=== PATIENT | male | born 1965 | race Caucasian/White ===

== ENCOUNTER 2020-10-13 07:26 | Outpatient (CLI) | payer OTHER, SELFPAY ==
--- NOTE | 2020-10-13 07:15 | XR_ITS ---
WS: [id number] KUB, 10/13/2020 Clinical Data: Stones Comparison: KUB 10/13/2019. Findings: No abnormal intraabdominal masses or calcifications are seen. There is no dilatated small bowel or ev idence of obstruction. There is a large amount of fecal material throughout colon and especially in the rectum. XR/XR KUB [id number] Impression: Large amount of fecal material throughout the colon.
== END 2020-10-13 07:27 | disposition home or self-care (01) ==
PROVIDERS: Family Provider Family Medicine; PCP Family Medicine; Visit Provider Urology
DX: N21.0 Calculus in bladder (principal)
CPT/HCPCS: 74018; 81003

== ENCOUNTER 2021-05-02 11:39 | Outpatient (CLI) | payer OTHER, SELFPAY ==
--- NOTE | 2021-05-02 11:48 | XRR_ITS ---
PROCEDURE INFORMATION: Exam: XR Chest Exam date and time: 05/02/2021 11:48 AM Age: 56 years old Clinical indication: Cough TECHNIQUE: Imaging protocol: XR of the chest. Views: 2 views. COMPARISON: CR XR KUB [id number] 10/13/2020 7:39 AM FINDINGS: Lungs: Unremarkable. No consolidation. Pleural spaces: Unremarkable. No pleural effusion. No pneumothorax. Heart/Mediastinum: Unremarkable. No cardiomegaly. Bones/joints: Unremarkable. XR/XR chest 2V* [id number] IMPRESSION: No acute findings.
== END 2021-05-02 11:40 | disposition home or self-care (01) ==
PROVIDERS: PCP Family Medicine; Visit Provider Family Medicine
DX: R05 Cough (principal)
CPT/HCPCS: 71046

== ENCOUNTER → 2021-05-09 11:06 | Outpatient (BNVA) | payer OTHER, SELFPAY | PROVIDERS: PCP Family Medicine; Visit Provider Family Medicine | DX: Z01.818 Encounter for other preprocedural examination (principal) | CPT/HCPCS: 87635 ==

== ENCOUNTER 2021-05-12 08:48 | Outpatient (CLI) | payer OTHER, SELFPAY ==
--- NOTE | 2021-05-12 14:04 | PFTS_ITS ---
Date of Study:05/12/21 Date of Dictation: MECHANICS: Forced vital capacity (FVC) is normal. Forced expiratory volume in one second (FEV1) is normal. FEV1/FVC is normal. FLOW VOLUME LOOP: Normal. LUNG VOLUMES: Total lung capacity (TLC) is normal. Residual volume (RV) is normal. DIFFUSING CAPACITY FOR CARBON MONOXIDE: Normal. INTERPRETATION: The pulmonary function tests are normal. MTDD
== END 2021-05-12 08:49 | disposition home or self-care (01) ==
PROVIDERS: PCP Family Medicine; Visit Provider Family Medicine
DX: R05 Cough (principal)
CPT/HCPCS: 94010; 94726; 94729

== ENCOUNTER → 2022-09-19 15:45 | Outpatient (BNVA) | payer OTHER, SELFPAY | PROVIDERS: PCP Family Medicine; Visit Provider Clinical Nurse Specialist Adult Health | DX: R19.7 Diarrhea, unspecified (principal); R17 Unspecified jaundice | CPT/HCPCS: 80053; 85025; 86705; 86706; 86709; 86803; 87340 ==

== ENCOUNTER 2022-09-20 16:10 | Emergency (ER) | payer OTHER, SELFPAY ==
[2022-09-20] VITALS (15 sets, daily range): BP systolic 101–159; BP diastolic 59–105; PULSE 73–97; RESP 14–22; TEMP 36.1; O2SAT 95–98; BMI 26.0
--- NOTE | 2022-09-20 16:22 | ECG_ITS ---
[facility] Test Date: 2022-09-20 Pat Name: Landen Elizabeth Department: Room: Gender: Male Wood [employer] Artist: : 1965 Requested By: Nakul Dumas Order Number: [id number] Enrique MD: Ann Marie De Leon M.D. Measurements Intervals [place] Rate: 92 P: 57 NV: 161 QRS: 45 QRSD: 89 T: 22 QT: 321 QTc: 399 Interpretive Statements SINUS RHYTHM POSSIBLE LEFT ATRIAL ENLARGEMENT [-0.1mV P-WAVE IN V1/V2] NONSPECIFIC T-WAVE ABNORMALITY No previous ECG available for comparison Electronically Signed On 09-21-2022 5:28:24 PROCUREMENT CONSULTANT by Ann Marie De Leon M.D. [id number]
--- NOTE | 2022-09-20 16:23 | XRR_ITS ---
PROCEDURE INFORMATION: Exam: XR Chest Exam date and time: 09/20/2022 5:43 PM Age: 57 years old Clinical indication: Cough and dyspnea; Patient HX: Liver failure; Additional info: Dyspnea/cough TECHNIQUE: Imaging protocol: Radiologic exam of the chest. Views: 1 view. COMPARISON: CR XR chest 2V* [id number] 05/02/2021 11:56 AM FINDINGS: Lungs: Unremarkable. No consolidation. Pleural spaces: Unremarkable. No pleural effusion. No pneumothorax. Heart/Mediastinum: Unremarkable. No cardiomegaly. Bones/joints: Unremarkable. XR/XR chest 1V portable [id number] IMPRESSION: No acute findings.
[2022-09-20 17:02] LABS: Basophils # 0.1 10^3/uL (0.0-0.1); Basophils % 0.6 %; Eosinophils # 0.1 10^3/uL (0.0-0.8); Eosinophils % 0.6 %; Hematocrit 44.6 % (42.0-52.0); Hemoglobin 15.2 g/dL (11.7-16.6); Lymphocytes # 1.6 10^3/uL (0.8-4.8); Lymphocytes % 16.7 %; Mean Corpuscular HGB Conc 34.1 g/dL (30.0-36.0); Mean Corpuscular Hemoglobin 30.9 pg (28.0-34.0); Mean Corpuscular Volume 90.7 fl (80-94); Mean Platelet Volume 10.2 fL (7.4-10.4); Monocytes # 0.9 10^3/uL (0.2-0.9); Monocytes % 9.1 %; Neutrophils # 6.97 10^3/uL (1.8-7.7); Neutrophils % 72.6 %; Nucleated Red Blood Cells % 0 %; Platelet Count 324 10^3/cmm (130-400); Red Blood Count 4.92 10^6/uL (4.1-5.3); Red Cell Distribution Width 13.1 % (12.1-15.1); White Blood Count 9.6 10^3/uL (4.0-10.0)
--- NOTE | 2022-09-20 17:03 | PC.NURSE ---
PT PLACED ON CONTINUOUS NIBP, SPO2, AND CM
--- NOTE | 2022-09-20 17:05 | ED_ITS ---
Documented by User: Francisco Javier Lincoln DO 09/28/22 07:01 HPI - Recheck/Abnormal Lab/Rx General: Chief Complaint: Recheck/Abnormal Lab/Rx Stated Complaint: abnormal labs, dr sent for liver failure Time Seen by Provider: 09/20/22 16:23 Source: patient Mode of arrival: ambulatory History of Present Illness: 57-year-old male presents to the emergency room with complaints of abnormal labs. He seen his primary care doctor yesterday they recorded a potassium of 8.5 however interestingly he had a normal BUN and creatinine. He has no history of any kidney disease but he does appear significantly jaundiced and reports darkened urine. On the visual parents he does have scleral icterus. He also has been very tired he denies any history of heavy drinking denies any known history of hepatitis or tick borne illnesses. Initial visit (ago): day(s) (1) Symptoms since prior visit: no new symptoms Context: called for abnormal lab result Associated symptoms: malaise and nausea Review of Systems Const: Reports: fatigue and malaise; Denies: fever(s), chills, body aches or change in appetite ENMT: Denies: throat pain, ear or mastoid pain, nasal discharge or nasal congestion Card: Denies: chest pain, edema, dyspnea on exertion or orthopnea Resp: Denies: dyspnea, productive cough or non-productive cough GI: Denies: abdominal pain, nausea, vomiting, hematemesis, coffee ground emesis, diarrhea, constipation, bloating, hematochezia or melena : Denies: flank pain, dysuria, urinary frequency or urinary urgency Skin/Breast: Denies: rash or pruritus PFS ED PFSH: Medical History (Updated 09/26/22 @ 11:01 by Arpit Proctor NP) Bile duct obstruction Bladder stone REQUIRING CYSTOLITHALOPAXY SEPT. 2018 Erectile dysfunction Gross hematuria History of urethral narrowing Lower urinary tract symptoms (LUTS) Pancreatic mass Prostate cancer screening Urolithiasis Surgical History H/O dilation of urethra H/O inguinal hernia repair History of back surgery S/P tonsillectomy Family History Family/Other CAD (coronary artery disease) Hyperlipidemia Hypertension Social History Smoking and tobacco status: never smoked Alcohol intake: never Marital status: Physical Exam Const: GENERAL APPEARANCE: cooperative and comfortable ORIENTATION/CONSCIOUSNESS: Yes awake, Yes oriented to person, Yes oriented to place and Yes oriented to time HENMT: COMMON NORMALS: normocephalic and atraumatic HEAD & SCALP: normocephalic and atraumatic Eye: SCLERA: scleral abnormal (Icteric) Neck/C-Spine: COMMON NORMALS: no lymphadenopathy Resp: COMMON NORMALS: normal respiratory effort, No retractions, No use of accessory muscles and clear to auscultation bilaterally AUSCULTATION: clear to auscultation bilaterally Cardio: COMMON NORMALS: regular rate, regular rhythm and No murmurs present (Cardio) RATE: regular rate RHYTHM: regular rhythm GI: COMMON NORMALS: Soft to palpation and No hepatosplenomegaly present AUSCULTATION: Yes normoactive bowel sounds PALPATION: Yes Soft to palpation, No Tenderness to palpation present (GI), No Guarding due to palpation present (GI) and Yes No hepatosplenomegaly present Extremity: COMMON NORMALS: normal to inspection, capillary refill normal, no clubbing, cyanosis or edema, no calf tenderness and no pedal edema Neuro: SENSORIUM/ORIENTATION: Yes oriented to person, Yes oriented to place and Yes oriented to time Skin: COMMON NORMALS: no rashes or lesions noted GENERAL SKIN EXAM: no rashes or lesions noted Course Vital Signs: Vital signs: Vital Signs Temperature 97.0 F L 09/20/22 16:53 Pulse Rate 78 09/20/22 23:30 Respiratory Rate 20 H 09/20/22 23:30 Blood Pressure 101/59 09/20/22 23:30 Pulse Oximetry 96 09/20/22 23:30 Oxygen Delivery Me thod 09/20/22 22:58 MDM - Recheck/Abnormal Lab/Rx Medical Decision Making Care signed out to Dr. De Jesus at change of shift. See final notes for diagnosis and disposition. Patient presents here with jaundice CT shows a pancreatic mass concerning for pancreatic malignancy is likely causing bile duct obstruction with did speak to hospitalist at [facility] will transfer there for higher level of care for GI Lab Data 09/20/22 16:53 09/20/22 16:53 Radiology Impressions Chest X-Ray 09/20/22 16:23 IMPRESSION: No acute findings. Gallbladder Ultrasound 09/20/22 17:50 IMPRESSION: 1. Possible 3.6 cm hypoechoic mass in the pancreatic head. Follow-up with CT pancreas protocol recommended. 2. No gallbladder disease. 3. Hyperechoic liver, consistent with steatosis/steatohepatitis. Abdomen/Pelvis CT 09/20/22 19:34 IMPRESSION: 1. 4.2 cm pancreatic head mass causing obstruction and dilatation of the main pancreatic duct and mild dilatation of the bile ducts. This is most likely primary pancreatic malignancy. Follow-up with ERCP and transduodenal ultrasound should be considered. COMMENTS: Consistent with the [place] [employer]'s Incidental Findings Committee white paper (J Am Subhash Radiol 2018): Any incidental renal lesion less than 1 cm or classified as too small to characterize, or any incidental cystic renal lesion characterized as simple-appearing, is likely benign. No follow-up imaging is recommended for these lesions per consensus recommendations based on imaging criteria. Laboratory Results WBC 9.6 10^3/uL (4.0-10.0) 09/20/22 16:53 RBC 4.92 10^6/uL (4.1-5.3) 09/20/22 16:53 Hgb 15.2 g/dL (11.7-16.6) 09/20/22 16:53 Hct 44.6 % (42.0-52.0) 09/20/22 16:53 MCV 90.7 fl (80-94) 09/20/22 16:53 MCH 30.9 pg (28.0-34.0) 09/20/22 16:53 MCHC 34.1 g/dL (30.0-36.0) 09/20/22 16:53 RDW 13.1 % (12.1-15.1) 09/20/22 16:53 Plt Count 324 10^3/cmm (130-400) 09/20/22 16:53 MPV 10.2 fL (7.4-10.4) 09/20/22 16:53 Neut % (Auto) 72.6 % 09/20/22 16:53 Lymph % (Auto) 16.7 % 09/20/22 16:53 [place] % (Auto) 9.1 % 09/20/22 16:53 Eos % (Auto) 0.6 % 09/20/22 16:53 Baso % (Auto) 0.6 % 09/20/22 16:53 Neut # (Auto) 6.97 10^3/uL (1.8-7.7) 09/20/22 16:53 Lymph # (Auto) 1.6 10^3/uL (0.8-4.8) 09/20/22 16:53 [place] # (Auto) 0.9 10^3/uL (0.2-0.9) 09/20/22 16:53 Eos # (Auto) 0.1 10^3/uL (0.0-0.8) 09/20/22 16:53 Baso # (Auto) 0.1 10^3/uL (0.0-0.1) 09/20/22 16:53 Nucleated RBC % (auto) 0 % 09/20/22 16:53 Nucleated RBCs # 0.0 /100WBC 09/20/22 16:53 PT 12.80 SECONDS (12.1-14.9) 09/20/22 16:53 INR 0.93 (0.8-1.2) 09/20/22 16:53 APTT 26.4 SECONDS (23.9-36.7) 09/20/22 16:53 Sodium 135 mmol/L (136-145) L 09/20/22 16:53 Potassium 4.3 mmol/L (3.5-5.1) 09/20/22 16:53 Chloride 102 mmol/L (98-107) 09/20/22 16:53 Carbon Dioxide 19 mmol/L (22-29) L 09/20/22 16:53 Anion Gap 18.3 (5-19) 09/20/22 16:53 BUN 18 mg/dL (6-20) 09/20/22 16:53 Creatinine 1.0 mg/dL (0.7-1.2) 09/20/22 16:53 GFR Calculation 77.6 mL/min (90-130) L 09/20/22 16:53 Glucose 116 mg/dL (65-115) H 09/20/22 16:53 Calculated Osmolality 283 mOsm/kg (285-295) L 09/20/22 16:53 Calcium 10.0 mg/dL (8.5-10.5) 09/20/22 16:53 Magnesium 2.0 mg/dL (1.7-2.3) 09/20/22 16:53 Total Bilirubin 7.5 mg/dL (0.15-1.2) H* 09/20/22 16:53 Direct Bilirubin 5.50 mg/dL (0.00-0.30) H 09/20/22 16:53 AST 141 U/L (0-40) H 09/20/22 16:53 ALT 413 U/L (0-41) H 09/20/22 16:53 Alkaline Phosphatase 183 U/L (40-130) H 09/20/22 16:53 Ammonia 47 umol/L (16-60) 09/20/22 18:57 Creatine Kinase 187 U/L (39-308) 09/20/22 16:53 Total Protein 7.2 g/dL (6.6-8.7) 09/20/22 16:53 Albumin 4.3 g/dL (3.5-5.2) 09/20/22 16:53 Globulin 2.9 g/dL (1.3-4.6) 09/20/22 16:53 Lipase 41 U/L (13-60) 09/20/22 16:53 Urine Color Yellow (Yellow) 09/20/22 19:56 Urine Appearance Clear (CLEAR) 09/20/22 19:56 Urine pH 5 (5-7) 09/20/22 19:56 Ur Specific [place] 1.010 (1.005-1.030) 09/20/22 19:56 Urine Protein Neg (Negative) 09/20/22 19:56 Urine Glucose (UA) Norm (Normal) 09/20/22 19:56 Urine Ketones Negative (Negative) 09/20/22 19:56 Urine Blood Neg (Negative) 09/20/22 19:56 Urine Nitrate Negative (Negative) 09/20/22 19:56 Urine Bilirubin Neg (Negative) 09/20/22 19:56 Urine Urobilinogen Norm mg/dL (Negative) 09/20/22 19:56 Ur Leukocyte Esterase Negative (Negative) 09/20/22 19:56 Lyme Ab (Western Blot) <0.90 index 09/20/22 18:57 E. chaffeensis IgG Ab <1:64 09/20/22 18:57 E. chaffeensis IgM Ab <1:20 09/20/22 18:57 E. chaffeensis Interp See note 09/20/22 18:57 E. chaffeensis Comment Not Reportable 09/20/22 18:57 Hepatitis A IgM Ab Cancelled 09/20/22 17:50 Hep Bs Antigen Cancelled 09/20/22 17:50 Hep Bs Antibody 3.5 (11.5-1000) L 09/20/22 16:53 Hep B Core Total Ab Non-reactive (Nonreactive) 09/20/22 16:53 Hep B Core IgM Ab Cancelled 09/20/22 17:50 Hepatitis C Antibody Cancelled 09/20/22 17:50 Rickettsia IgG Ab Not detected 09/20/22 18:57 Rickettsia IgM Ab Not detected 09/20/22 18:57 Discharge Plan Discharge Patient Disposition: Xfer Short-Term Hosp Clinical Impression: Jaundice, Pancreatic mass, Bile duct obstruction Condition: Stable Referrals: Pablito Diop, [Primary Care Provider] - Coding Level of Care Code ED Instrumentation And Controls Technician for Chg Fwd Exam Comprehensive Documented by User: Antonio De Jesus MD 09/20/22 22:03 HPI - Recheck/Abnormal Lab/Rx General: Chief Complaint: Recheck/Abnormal Lab/Rx Stated Complaint: abnormal labs, dr sent for liver failure Time Seen by Provider: 09/20/22 16:23 PFS ED PFSH: Medical History (Updated 09/26/22 @ 11:01 by Arpit Proctor NP) Bile duct obstruction Bladder stone REQUIRING CYSTOLITHALOPAXY SEPT. 2018 Erectile dysfunction Gross hematuria History of urethral narrowing Lower urinary tract symptoms (LUTS) Pancreatic mass Prostate cancer screening Urolithiasis Surgical History H/O dilation of urethra H/O inguinal hernia repair History of back surgery S/P tonsillectomy Family History Family/Other CAD (coronary artery disease) Hyperlipidemia Hypertension Social History Smoking and tobacco status: never smoked Alcohol intake: never Marital status: Course Vital Signs: Vital signs: Vital Signs Temperature 97.0 F L 09/20/22 16:53 Pulse Rate 78 09/20/22 23:30 Respiratory Rate 20 H 09/20/22 23:30 Blood Pressure 101/59 09/20/22 23:30 Pulse Oximetry 96 09/20/22 23:30 Oxygen Delivery Me thod 09/20/22 22:58 MDM - Recheck/Abnormal Lab/Rx Medical Decision Making Patient presents here with jaundice CT shows a pancreatic mass concerning for pancreatic malignancy is likely causing bile duct obstruction with did speak to hospitalist at [facility] will transfer there for higher level of care for GI Lab Data 09/20/22 16:53 09/20/22 16:53 Radiology Impressions Chest X-Ray 09/20/22 16:23 IMPRESSION: No acute findings. Gallbladder Ultrasound 09/20/22 17:50 IMPRESSION: 1. Possible 3.6 cm hypoechoic mass in the pancreatic head. Follow-up with CT pancreas protocol recommended. 2. No gallbladder disease. 3. Hyperechoic liver, consistent with steatosis/steatohepatitis. Abdomen/Pelvis CT 09/20/22 19:34 IMPRESSION: 1. 4.2 cm pancreatic head mass causing obstruction and dilatation of the main pancreatic duct and mild dilatation of the bile ducts. This is most likely primary pancreatic malignancy. Follow-up with ERCP and transduodenal ultrasound should be considered. COMMENTS: Consistent with the [place] [employer]'s Incidental Findings Committee white paper (J Am Subhash Radiol 2018): Any incidental renal lesion less than 1 cm or classified as too small to characterize, or any incidental cystic renal lesion characterized as simple-appearing, is likely benign. No follow-up imaging is recommended for these lesions per consensus recommendations based on imaging criteria. Laboratory Results WBC 9.6 10^3/uL (4.0-10.0) 09/20/22 16:53 RBC 4.92 10^6/uL (4.1-5.3) 09/20/22 16:53 Hgb 15.2 g/dL (11.7-16.6) 09/20/22 16:53 Hct 44.6 % (42.0-52.0) 09/20/22 16:53 MCV 90.7 fl (80-94) 09/20/22 16:53 MCH 30.9 pg (28.0-34.0) 09/20/22 16:53 MCHC 34.1 g/dL (30.0-36.0) 09/20/22 16:53 RDW 13.1 % (12.1-15.1) 09/20/22 16:53 Plt Count 324 10^3/cmm (130-400) 09/20/22 16:53 MPV 10.2 fL (7.4-10.4) 09/20/22 16:53 Neut % (Auto) 72.6 % 09/20/22 16:53 Lymph % (Auto) 16.7 % 09/20/22 16:53 [place] % (Auto) 9.1 % 09/20/22 16:53 Eos % (Auto) 0.6 % 09/20/22 16:53 Baso % (Auto) 0.6 % 09/20/22 16:53 Neut # (Auto) 6.97 10^3/uL (1.8-7.7) 09/20/22 16:53 Lymph # (Auto) 1.6 10^3/uL (0.8-4.8) 09/20/22 16:53 [place] # (Auto) 0.9 10^3/uL (0.2-0.9) 09/20/22 16:53 Eos # (Auto) 0.1 10^3/uL (0.0-0.8) 09/20/22 16:53 Baso # (Auto) 0.1 10^3/uL (0.0-0.1) 09/20/22 16:53 Nucleated RBC % (auto) 0 % 09/20/22 16:53 Nucleated RBCs # 0.0 /100WBC 09/20/22 16:53 PT 12.80 SECONDS (12.1-14.9) 09/20/22 16:53 INR 0.93 (0.8-1.2) 09/20/22 16:53 APTT 26.4 SECONDS (23.9-36.7) 09/20/22 16:53 Sodium 135 mmol/L (136-145) L 09/20/22 16:53 Potassium 4.3 mmol/L (3.5-5.1) 09/20/22 16:53 Chloride 102 mmol/L (98-107) 09/20/22 16:53 Carbon Dioxide 19 mmol/L (22-29) L 09/20/22 16:53 Anion Gap 18.3 (5-19) 09/20/22 16:53 BUN 18 mg/dL (6-20) 09/20/22 16:53 Creatinine 1.0 mg/dL (0.7-1.2) 09/20/22 16:53 GFR Calculation 77.6 mL/min (90-130) L 09/20/22 16:53 Glucose 116 mg/dL (65-115) H 09/20/22 16:53 Calculated Osmolality 283 mOsm/kg (285-295) L 09/20/22 16:53 Calcium 10.0 mg/dL (8.5-10.5) 09/20/22 16:53 Magnesium 2.0 mg/dL (1.7-2.3) 09/20/22 16:53 Total Bilirubin 7.5 mg/dL (0.15-1.2) H* 09/20/22 16:53 Direct Bilirubin 5.50 mg/dL (0.00-0.30) H 09/20/22 16:53 AST 141 U/L (0-40) H 09/20/22 16:53 ALT 413 U/L (0-41) H 09/20/22 16:53 Alkaline Phosphatase 183 U/L (40-130) H 09/20/22 16:53 Ammonia 47 umol/L (16-60) 09/20/22 18:57 Creatine Kinase 187 U/L (39-308) 09/20/22 16:53 Total Protein 7.2 g/dL (6.6-8.7) 09/20/22 16:53 Albumin 4.3 g/dL (3.5-5.2) 09/20/22 16:53 Globulin 2.9 g/dL (1.3-4.6) 09/20/22 16:53 Lipase 41 U/L (13-60) 09/20/22 16:53 Urine Color Yellow (Yellow) 09/20/22 19:56 Urine Appearance Clear (CLEAR) 09/20/22 19:56 Urine pH 5 (5-7) 09/20/22 19:56 Ur Specific [place] 1.010 (1.005-1.030) 09/20/22 19:56 Urine Protein Neg (Negative) 09/20/22 19:56 Urine Glucose (UA) Norm (Normal) 09/20/22 19:56 Urine Ketones Negative (Negative) 09/20/22 19:56 Urine Blood Neg (Negative) 09/20/22 19:56 Urine Nitrate Negative (Negative) 09/20/22 19:56 Urine Bilirubin Neg (Negative) 09/20/22 19:56 Urine Urobilinogen Norm mg/dL (Negative) 09/20/22 19:56 Ur Leukocyte Esterase Negative (Negative) 09/20/22 19:56 Lyme Ab (Western Blot) <0.90 index 09/20/22 18:57 E. chaffeensis IgG Ab <1:64 09/20/22 18:57 E. chaffeensis IgM Ab <1:20 09/20/22 18:57 E. chaffeensis Interp See note 09/20/22 18:57 E. chaffeensis Comment Not Reportable 09/20/22 18:57 Hepatitis A IgM Ab Cancelled 09/20/22 17:50 Hep Bs Antigen Cancelled 09/20/22 17:50 Hep Bs Antibody 3.5 (11.5-1000) L 09/20/22 16:53 Hep B Core Total Ab Non-reactive (Nonreactive) 09/20/22 16:53 Hep B Core IgM Ab Cancelled 09/20/22 17:50 Hepatitis C Antibody Cancelled 09/20/22 17:50 Rickettsia IgG Ab Not detected 09/20/22 18:57 Rickettsia IgM Ab Not detected 09/20/22 18:57 Discharge Plan Discharge Patient Disposition: Xfer Short-Term Hosp Clinical Impression: Jaundice, Pancreatic mass, Bile duct obstruction Condition: Stable Referrals: Pablito Diop DO [Primary Care Provider] - Coding Level of Care Code ED Instrumentation And Controls Technician for Chg Fwd Exam Comprehensive
[2022-09-20 17:13] LABS: INR 0.93 (0.8-1.2)
[2022-09-20 17:14] LABS: Partial Thromboplastin Time 26.4 SECONDS (23.9-36.7)
[2022-09-20 17:46] LABS: Alanine Aminotransferase 413 U/L (0-41); Albumin Level 4.3 g/dL (3.5-5.2); Alkaline Phosphatase 183 U/L (40-130); Anion Gap 18.3 (5-19); Aspartate Amino Transferase 141 U/L (0-40); Blood Urea Nitrogen 18 mg/dL (6-20); Carbon Dioxide 19 mmol/L (22-29); Chloride 102 mmol/L (98-107); Creatine Phosphokinase 187 U/L (39-308); Globulin 2.9 g/dL (1.3-4.6); Glomerular Filtration Rate 77.6 mL/min (90-130); Glucose 116 mg/dL (65-115); Lipase 41 U/L (13-60); Osmolality Calculated 283 mOsm/kg (285-295); Potassium 4.3 mmol/L (3.5-5.1); Sodium 135 mmol/L (136-145); Total Protein 7.2 g/dL (6.6-8.7)
[2022-09-20 17:49] LABS: Total Bilirubin 7.5 mg/dL (0.15-1.2)
--- NOTE | 2022-09-20 17:50 | USR_ITS ---
PROCEDURE INFORMATION: Exam: US Abdomen, Limited; Right Upper Quadrant Exam date and time: 09/20/2022 6:13 PM Age: 57 years old Clinical indication: Other: Painless jaundice TECHNIQUE: Imaging protocol: Real time ultrasound of the abdomen with image documentation. Limited exam focused on the right upper quadrant. COMPARISON: CR XR KUB [id number] 10/13/2020 7:39 AM FINDINGS: Liver: The liver is hyperechoic relative to the right kidney, consistent with fatty infiltration. 14.1 cm in length. Gallbladder: Normal. No gallstones. There is no gallbladder wall thickening. Biliary ducts: Normal. No stones. No dilation. Pancreas: Possible 3.6 cm hypoechoic mass in the pancreatic head. The body and tail are unremarkable. Right kidney: Normal. No mass. No hydronephrosis. Intraperitoneal space: No free peritoneal fluid. US/US gall bladder [id number] IMPRESSION: 1. Possible 3.6 cm hypoechoic mass in the pancreatic head. Follow-up with CT pancreas protocol recommended. 2. No gallbladder disease. 3. Hyperechoic liver, consistent with steatosis/steatohepatitis.
--- NOTE | 2022-09-20 19:34 | CTR_ITS ---
PROCEDURE INFORMATION: Exam: CT Abdomen And Pelvis With Contrast Exam date and time: 09/20/2022 8:26 PM Age: 57 years old Clinical indication: Abnormal findings; Abnormal lab test; Elevated liver enzymes; Additional info: Pancreatic mass TECHNIQUE: Imaging protocol: Computed tomography of the abdomen and pelvis with contrast. Radiation optimization: All CT scans at this facility use at least one of these dose optimization techniques: automated exposure control; mA and/or kV adjustment per patient size (includes targeted exams where dose is matched to clinical indication); or iterative reconstruction. Contrast material: OMNIPAQUE 350; Contrast volume: 95 ml; Contrast route: INTRAVENOUS (IV); COMPARISON: US gall bladder [id number] 09/20/2022 6:13 PM RADIATION DOSE METRICS: Total DLP (mGy-cm): 681.73 FINDINGS: Lungs: Right lower lobe calcified granuloma. Liver: Diffuse fatty infiltration of the liver. No focal nodule identified. Gallbladder and bile ducts: Fluid distended gallbladder with probable sludge measuring 37 Hounsfield units. No wall thickening. Mild intrahepatic and extrahepatic ductal dilatation. The common bile duct measures 10 mm. No intraductal filling defect identified. Pancreas: 4.2 cm ill-defined isodense mass in the pancreatic head. There is parenchymal atrophy and ductal dilatation in the pancreatic body and tail with the duct measuring up to 5 mm. Spleen: Calcified granuloma in the spleen. Adrenal glands: Normal. No mass. Kidneys and ureters: Hypodensity in the right kidney is too small to characterize but is most likely a tiny cyst. No follow-up imaging is recommended. The kidneys are otherwise unremarkable. No hydronephrosis. Stomach and bowel: Unremarkable. No obstruction. No mucosal thickening. Appendix: The appendix is visualized and is normal. Intraperitoneal space: Unremarkable. No free air. No significant fluid collection. Vasculature: Unremarkable. No abdominal aortic aneurysm. Lymph nodes: Unremarkable. No enlarged lymph nodes. Urinary bladder: Unremarkable as visualized. Reproductive: Vasectomy clips. Bones/joints: Degenerative changes of the lower lumbar spine. No fracture. No lytic or aggressive lesion. Soft tissues: Small fat containing umbilical hernia. Fat containing right inguinal hernia. CT/CT abdomen pelvis w con* [id number] IMPRESSION: 1. 4.2 cm pancreatic head mass causing obstruction and dilatation of the main pancreatic duct and mild dilatation of the bile ducts. This is most likely primary pancreatic malignancy. Follow-up with ERCP and transduodenal ultrasound should be considered. COMMENTS: Consistent with the [place] [employer]'s Incidental Findings Committee white paper (J Am Subhash Radiol 2018): Any incidental renal lesion less than 1 cm or classified as too small to characterize, or any incidental cystic renal lesion characterized as simple-appearing, is likely benign. No follow-up imaging is recommended for these lesions per consensus recommendations based on imaging criteria.
[2022-09-20 19:40] LABS: Ammonia 47 umol/L (16-60)
[2022-09-20 20:01] LABS: Add Urine Microscopic? NO; Charge for UA Resulting for Rev
[2022-09-20 20:02] LABS: Bilirubin Urine Neg (Negative); Blood Urine Neg (Negative); Glucose Urine UA Norm (Normal); Ketones Urine Negative (Negative); Leukocyte Esterase Urine Negative (Negative); Nitrate Urine Negative (Negative); Protein Urine Neg (Negative); Urine Appearance Clear (CLEAR); Urine Color Yellow (Yellow); Urobilinogen Urine Norm (Negative); pH Urine 5 (5-7)
[2022-09-20] MEDS: iohexol 350 mg/mL 500 mL Btl (per mL) IV (20:26)
--- NOTE | 2022-09-20 23:07 | PC.NURSE ---
Nurse report called to Ayesha Dos Santos.
[2022-09-20 23:12] LABS: Hepatitis A Antibody IgM Non-Reactive (Nonreactive); Hepatitis B Core AB, Total Non-Reactive (Nonreactive); Hepatitis B Surface AB 3.5 (11.5-1000); Hepatitis B Surface Antigen Non-Reactive (Nonreactive); Hepatitis C Virus Antibody Non-Reactive (Nonreactive)
[2022-09-25 12:48] LABS: Lyme AB Screen <0.90 index
[2022-09-26 17:38] LABS: RMSF IGG NOT DETECTED; RMSF IGM NOT DETECTED
[2022-09-27 17:03] LABS: E. Chaffeensis AB IGG <1:64; E. Chaffeensis AB IGM <1:20
== END 2022-09-21 00:01 | disposition short-term general hospital (02) ==
PROVIDERS: Emergency Medicine; Family Medicine; Emergency Provider Emergency Medicine; PCP Family Medicine
DX: R17 Unspecified jaundice (principal); K86.9 Disease of pancreas, unspecified; K83.1 Obstruction of bile duct
CPT/HCPCS: 71045; 74177; 76705; 80048; 80076; 81003; 82140; 82550; 83630; 83690; 83735; 85025; 85610; 85730; 86618; 86666; 86705; 86706; 86709; 86757; 86803; 87177; 87209; 87340; 87493; 87506; 93005; 99285; Q9967

== ENCOUNTER → 2022-09-26 10:59 | Outpatient (BNVA) | payer OTHER, SELFPAY | PROVIDERS: PCP Family Medicine; Visit Provider Clinical Nurse Specialist Adult Health | DX: R74.8 Abnormal levels of other serum enzymes (principal); R17 Unspecified jaundice; K86.89 Other specified diseases of pancreas | CPT/HCPCS: 80053; 85007; 85027 ==

== ENCOUNTER 2022-10-09 13:52 | Outpatient (CLI) | payer OTHER, SELFPAY ==
[2022-10-09 14:48] LABS: Prostate Specific AG Urology 0.87 ng/mL (0-4)
== END 2022-10-09 13:53 | disposition home or self-care (01) ==
LOC: LAB 13:56
PROVIDERS: PCP Family Medicine; Visit Provider Urology
DX: Z12.5 Encounter for screening for malignant neoplasm of prostate (principal)
CPT/HCPCS: 84153

== ENCOUNTER → 2022-10-17 08:15 | Outpatient (BNVA) | payer OTHER, SELFPAY | PROVIDERS: PCP Family Medicine; Visit Provider Urology | DX: Z12.5 Encounter for screening for malignant neoplasm of prostate (principal); R39.9 Unspecified symptoms and signs involving the genitourinary system; N20.9 Urinary calculus, unspecified | CPT/HCPCS: 81003 ==

== ENCOUNTER → 2022-11-08 09:41 | Outpatient (BNVA) | payer OTHER, SELFPAY | PROVIDERS: PCP Family Medicine; Visit Provider Family Medicine | DX: K86.89 Other specified diseases of pancreas (principal) | CPT/HCPCS: 80076 ==

== ENCOUNTER 2023-08-10 08:23 | Outpatient (CLI) | payer OTHER, SELFPAY ==
--- NOTE | 2023-08-10 08:45 | MR_ITS ---
WS: [id number] MRI HEAD WITH CONTRAST TECHNIQUE: Sagittal T1, T2 axial, T2 axial FLAIR, axial susceptibility weighted imaging, axial diffus ion weighted images, and coronal T2 images were obtained. Pre and post-T1 axial and post T1 coronal i mages. ADC and FSPGR images. CLINICAL INFORMATION: worsening cognition, tremor COMPARISON: None. FINDINGS: No evidence of restricted diffusion to suggest acute ischemia. Ventricular system and basal cisterns are patent. No suspicious intracranial signal normalities. Normal posterior fossa. Normal vascular fl ow voids at the skull base. No extra-axial fluid collections. No evidence of mass or mass effect. Par anasal sinuses and mastoid air cells are well aerated. Normal parapharyngeal fat. Normal posterior na sopharynx. No hemosiderin on the susceptibly weighted images. Normal optic chiasm and pituitary infundibulum. Te mporal lobes and hippocampal formations are normal in appearance. Incidental benign venous angioma RIGHT frontal lobe. No abnormal intracranial enhancement. Normal dur al venous sinuses. Tiny incidental pars intermedia cyst. No other suspicious findings. IMPRESSION: 1. No evidence of restricted diffusion to suggest acute ischemia. 2. No suspicious intracranial signal normalities. No significant parenchymal volume loss. 3. Incidental benign venous angioma RIGHT frontal lobe. 4. No hemosiderin on susceptibility-weighted images. 5. No other suspicious findings.
[2023-08-10] MEDS: gadobenate dimeglumine 20 mL vial IV (09:20)
== END 2023-08-10 08:24 | disposition home or self-care (01) ==
PROVIDERS: PCP Family Medicine; Visit Provider Family Medicine
DX: R25.1 Tremor, unspecified (principal); R41.89 Other symptoms and signs involving cognitive functions and awareness
CPT/HCPCS: 70553; A9577

== ENCOUNTER → 2023-10-25 08:10 | Outpatient (BNVA) | payer OTHER, SELFPAY | PROVIDERS: PCP Family Medicine; Visit Provider Clinical Nurse Specialist Adult Health | DX: J06.9 Acute upper respiratory infection, unspecified (principal) | CPT/HCPCS: 87426 ==

== ENCOUNTER 2023-10-30 08:54 | Outpatient (CLI) | payer OTHER, SELFPAY ==
--- NOTE | 2023-10-30 09:45 | USCV_ITS ---
Landen Elizabeth Age: 58 Gender: M : 1965 Exam Date: 10/30/2023 09:29 Ordering Phys: Rhett Muhammad MD Technologist: CT Exam Location: [facility] [place]_ Indication: slurred speech Risk Factors: Previous Vascular Surgery: Right Brachial BP: / Left Brachial BP: / Right Left Velocity (cm/s) Spectral Plaque Velocity (cm/s) Spectral Plaque Syst/Diast Broadening Syst/Diast Broadening 75.90/ 16.80 Prox CCA 76.00 / 21.10 79.90/ 19.70 Mid CCA 85.40 / 24.30 66.70/ 20.10 Distal CCA 69.70 / 22.10 49.70/ 20.20 Prox ICA 52.10 / 19.80 79.40/ 32.00 Mid ICA 65.10 / 25.40 78.30/ 34.20 Distal ICA 68.90 / 29.70 76.60 ECA 66.80 0.99 ICA/CCA 0.81 Antegrade Vertebral Antegrade 45.80/ 15.50 cm/s 54.70/ 19.20 cm/s Tri Subclavian Tri 74.00 122.0 0 FINDINGS Comparison: none available. No significant elevation of systolic or diastolic velocities. Waveforms are normal. Diffuse, miild bilateral scattered calcified plaque and intimal thickening throughout the common carotid arteries and extending through the bifurcation. CONCLUSIONS Bilateral ICA stenosis less than 50%. Mild diffuse carotid atherosclerosis. Dr. Karli Rodriguez DO (Electronically Signed) Final Date: 30 October 2023 10:51 S
== END 2023-10-30 08:55 | disposition home or self-care (01) ==
LOC: RAD 08:55
PROVIDERS: PCP Family Medicine; Visit Provider Psychiatry & Neurology Neurology
DX: R25.1 Tremor, unspecified (principal); R41.89 Other symptoms and signs involving cognitive functions and awareness; R47.81 Slurred speech; I65.23 Occlusion and stenosis of bilateral carotid arteries
CPT/HCPCS: 93880

== ENCOUNTER 2023-10-30 08:58 | Outpatient (CLI) | payer OTHER, SELFPAY ==
[2023-10-30 13:08] LABS: Alanine Aminotransferase 30 U/L (0-41); Albumin Level 4.7 g/dL (3.5-5.2); Alkaline Phosphatase 64 U/L (40-130); Aspartate Amino Transferase 24 U/L (0-40); Globulin 2.4 g/dL (1.3-4.6); Immunoglobulin IGA 82 mg/dL (70-400); Immunoglobulin IGG 782 mg/dL (700-1600); Immunoglobulin IGM 90 mg/dL (40-230); Total Bilirubin 0.6 mg/dL (0.15-1.2); Total Protein 7.1 g/dL (6.6-8.7)
== END 2023-10-30 08:59 | disposition home or self-care (01) ==
LOC: LAB 09:05
PROVIDERS: PCP Family Medicine; Visit Provider Family Medicine
DX: K86.1 Other chronic pancreatitis (principal)
CPT/HCPCS: 36415; 80076; 82784

== ENCOUNTER 2023-12-10 09:04 | Outpatient (CLI) | payer OTHER, SELFPAY ==
[2023-12-20 06:54] LABS: Arsenic, 24 Hour Urine <10 mcg/L (< OR = 80); Lead, 24 Hour Urine <10 mcg/L (< 80); Mercury, 24 Hour Urine <4 mcg/L
== END 2023-12-10 09:05 | disposition home or self-care (01) ==
PROVIDERS: PCP Family Medicine; Visit Provider Family Medicine
DX: R25.8 Other abnormal involuntary movements (principal)
CPT/HCPCS: 82175; 83655; 83825

== ENCOUNTER 2023-12-12 07:55 | Outpatient (CLI) | payer OTHER, SELFPAY ==
[2023-12-12 08:44] LABS: Alanine Aminotransferase 26 U/L (0-41); Albumin Level 4.4 g/dL (3.5-5.2); Alkaline Phosphatase 61 U/L (40-130); Aspartate Amino Transferase 23 U/L (0-40); Globulin 2.7 g/dL (1.3-4.6); Total Bilirubin 0.7 mg/dL (0.15-1.2); Total Protein 7.1 g/dL (6.6-8.7)
== END 2023-12-12 07:56 | disposition home or self-care (01) ==
LOC: LAB 07:57
PROVIDERS: PCP Family Medicine; Visit Provider Internal Medicine
DX: K86.1 Other chronic pancreatitis (principal)
CPT/HCPCS: 36415; 80076

== ENCOUNTER 2024-01-23 06:38 | Outpatient (CLI) | payer OTHER, SELFPAY ==
[2024-01-23 07:30] LABS: Alanine Aminotransferase 28 U/L (0-41); Albumin Level 4.3 g/dL (3.5-5.2); Alkaline Phosphatase 74 U/L (40-130); Aspartate Amino Transferase 20 U/L (0-40); Globulin 2.2 g/dL (1.3-4.6); Total Bilirubin 0.4 mg/dL (0.15-1.2); Total Protein 6.5 g/dL (6.6-8.7)
== END 2024-01-23 06:39 | disposition home or self-care (01) ==
PROVIDERS: PCP Family Medicine; Visit Provider Internal Medicine
DX: K86.1 Other chronic pancreatitis (principal)
CPT/HCPCS: 36415; 80076

== ENCOUNTER → 2024-01-30 15:16 | Outpatient (BNVA) | payer OTHER, SELFPAY | PROVIDERS: PCP Family Medicine; Visit Provider Psychiatry & Neurology Neurology | DX: G20.A1 Parkinson's disease without dyskinesia, without mention of fluctuations (principal) | CPT/HCPCS: 36415; 82140; 82306; 82565; 82607; 82746; 83921; 84155; 84165; 84520; 86334 ==

== ENCOUNTER 2024-02-08 13:11 | Outpatient (CLI) | payer OTHER, SELFPAY ==
[2024-02-11 19:40] LABS: Manganese Blood 9.8 mcg/L (4.2-16.5)
== END 2024-02-08 13:12 | disposition home or self-care (01) ==
LOC: LAB 13:12
PROVIDERS: PCP Family Medicine; Visit Provider Psychiatry & Neurology Neurology
DX: R74.8 Abnormal levels of other serum enzymes (principal); R17 Unspecified jaundice
CPT/HCPCS: 36415; 83785

== ENCOUNTER 2024-03-06 06:42 | Outpatient (CLI) | payer OTHER, SELFPAY ==
[2024-03-06 07:26] LABS: Alanine Aminotransferase < 5 U/L (0-41); Albumin Level 4.4 g/dL (3.5-5.2); Alkaline Phosphatase 72 U/L (40-130); Aspartate Amino Transferase 17 U/L (0-40); Globulin 2.1 g/dL (1.3-4.6); Total Bilirubin 0.3 mg/dL (0.15-1.2); Total Protein 6.5 g/dL (6.6-8.7)
[2024-03-09 15:35] LABS: Ethylene Glycol <10.0 mg/L (***)
== END 2024-03-06 06:43 | disposition home or self-care (01) ==
PROVIDERS: PCP Family Medicine; Visit Provider Family Medicine
DX: R74.8 Abnormal levels of other serum enzymes (principal); R17 Unspecified jaundice; G93.40 Encephalopathy, unspecified; R41.89 Other symptoms and signs involving cognitive functions and awareness; R25.1 Tremor, unspecified; R25.8 Other abnormal involuntary movements
CPT/HCPCS: 36415; 80076; 82693

== ENCOUNTER 2024-03-12 08:37 | Oncology outpatient (recurring) (ONCR) | payer OTHER, SELFPAY ==
[2024-03-12 10:00] LABS: Basophils % 0.4 %; Eosinophils # 0.2 10^3/uL (0.0-0.8); Eosinophils % 3.3 %; Hematocrit 46.8 % (37-53); Lymphocytes # 2.1 10^3/uL (0.8-4.8); Lymphocytes % 30.7 %; Mean Corpuscular Hemoglobin 30.2 pg (27-33); Mean Platelet Volume 8.9 fL (7.4-10.4); Monocytes # 0.8 10^3/uL (0.2-0.9); Neutrophils # 3.76 10^3/uL (1.8-7.7); Neutrophils % 54.5 %; Nucleated Red Blood Cells % 0 %; Platelet Count 295 10^3/cmm (157-399); Red Blood Count 5.26 10^6/uL (3.85-5.65); Red Cell Distribution Width 12.5 % (12.1-15.1); White Blood Count 6.91 10^3/uL (3.29-11.43)
[2024-03-12 10:20] LABS: Alanine Aminotransferase < 5 U/L (0-41); Albumin Level 4.3 g/dL (3.5-5.2); Alkaline Phosphatase 73 U/L (40-130); Anion Gap 14.8 (5-19); Aspartate Amino Transferase 19 U/L (0-40); Blood Urea Nitrogen 16 mg/dL (6-20); Calcium 9.4 mg/dL (8.5-10.5); Carbon Dioxide 25 mmol/L (22-29); Chloride 105 mmol/L (98-107); Creatinine Clr Calc Pharmacy 112.3837; Globulin 2.6 g/dL (1.3-4.6); Glomerular Filtration Rate 87.3 mL/min (90-130); Glucose 108 mg/dL (65-115); Immunoglobulin IGA 82 mg/dL (70-400); Immunoglobulin IGG 787 mg/dL (700-1600); Immunoglobulin IGM 95 mg/dL (40-230); Osmolality Calculated 292 mOsm/kg (285-295); Potassium 4.8 mmol/L (3.5-5.1); Sodium 140 mmol/L (136-145); Total Bilirubin 0.6 mg/dL (0.15-1.2); Total Protein 6.9 g/dL (6.6-8.7)
[2024-03-13 12:50] LABS: PROTEIN, TOTAL 6.5 g/dL (6.1-8.1)
[2024-03-17 08:54] LABS: ALBUMIN 4.2 g/dL (3.8-4.8); ALPHA 1 GLOBULIN 0.2 g/dL (0.2-0.3); ALPHA 2 GLOBULIN 0.7 g/dL (0.5-0.9); BETA 1 GLOBULIN 0.4 g/dL (0.4-0.6); BETA 2 GLOBULIN 0.3 g/dL (0.2-0.5); GAMMA GLOBULIN 0.7 g/dL (0.8-1.7)
== END 2024-04-11 23:59 | disposition home or self-care (01) ==
PROVIDERS: PCP Family Medicine; Visit Provider Internal Medicine Hematology & Oncology
DX: D80.1 Nonfamilial hypogammaglobulinemia (principal); K86.1 Other chronic pancreatitis; R17 Unspecified jaundice; R74.8 Abnormal levels of other serum enzymes
CPT/HCPCS: 36415; 80053; 82784; 84155; 84165; 85025; 86334

== ENCOUNTER 2024-06-24 09:33 | Outpatient (CLI) | payer OTHER, SELFPAY ==
[2024-06-24 10:26] LABS: Alanine Aminotransferase < 5 U/L (0-41); Albumin Level 4.4 g/dL (3.5-5.2); Alkaline Phosphatase 76 U/L (40-130); Aspartate Amino Transferase 17 U/L (0-40); Globulin 2.5 g/dL (1.3-4.6); Total Bilirubin 0.7 mg/dL (0.15-1.2); Total Protein 6.9 g/dL (6.6-8.7)
== END 2024-06-24 09:34 | disposition home or self-care (01) ==
PROVIDERS: PCP Family Medicine
DX: K86.1 Other chronic pancreatitis (principal)
CPT/HCPCS: 36415; 80076

== ENCOUNTER 2024-09-15 09:45 | Outpatient (CLI) | payer OTHER, SELFPAY ==
[2024-09-15 10:38] LABS: Alanine Aminotransferase < 5 U/L (0-41); Albumin Level 4.5 g/dL (3.5-5.2); Alkaline Phosphatase 72 U/L (40-130); Aspartate Amino Transferase 16 U/L (0-40); Globulin 1.7 g/dL (1.3-4.6); Total Bilirubin 0.5 mg/dL (0.15-1.2); Total Protein 6.2 g/dL (6.6-8.7)
== END 2024-09-15 09:46 | disposition home or self-care (01) ==
LOC: LAB 10:00
PROVIDERS: PCP Family Medicine; Visit Provider Student in an Organized Health Care Education/Training Program
DX: K86.1 Other chronic pancreatitis (principal)
CPT/HCPCS: 36415; 80076

== ENCOUNTER → 2024-09-26 10:10 | Outpatient (BNVA) | payer OTHER, SELFPAY | PROVIDERS: PCP Family Medicine; Visit Provider Family Medicine | DX: Z00.00 Encounter for general adult medical examination without abnormal findings (principal); G20.A1 Parkinson's disease without dyskinesia, without mention of fluctuations; K86.89 Other specified diseases of pancreas; R17 Unspecified jaundice; E03.9 Hypothyroidism, unspecified | CPT/HCPCS: 80053; 80061; 82607; 84443 ==

== ENCOUNTER 2024-12-15 13:01 | Outpatient (CLI) | payer OTHER, SELFPAY ==
[2024-12-15 13:32] LABS: Alanine Aminotransferase < 5 U/L (0-41); Albumin Level 4.5 g/dL (3.5-5.2); Alkaline Phosphatase 69 U/L (40-130); Aspartate Amino Transferase 19 U/L (0-40); Globulin 2.7 g/dL (1.3-4.6); Total Bilirubin 0.5 mg/dL (0.15-1.2); Total Protein 7.2 g/dL (6.6-8.7)
== END 2024-12-15 13:02 | disposition home or self-care (01) ==
LOC: LAB 13:03
PROVIDERS: PCP Family Medicine; Visit Provider Student in an Organized Health Care Education/Training Program
DX: K86.1 Other chronic pancreatitis (principal)
CPT/HCPCS: 36415; 80076

== ENCOUNTER 2025-03-16 06:44 | Outpatient (CLI) | payer OTHER, SELFPAY ==
[2025-03-16 07:43] LABS: Alanine Aminotransferase < 5 U/L (0-41); Albumin Level 4.1 g/dL (3.5-5.2); Alkaline Phosphatase 72 U/L (40-130); Aspartate Amino Transferase 21 U/L (0-40); Globulin 2.6 g/dL (1.3-4.6); Total Bilirubin 0.4 mg/dL (0.15-1.2); Total Protein 6.7 g/dL (6.6-8.7)
== END 2025-03-16 06:45 | disposition home or self-care (01) ==
PROVIDERS: PCP Family Medicine; Visit Provider Student in an Organized Health Care Education/Training Program
DX: K86.1 Other chronic pancreatitis (principal)
CPT/HCPCS: 36415; 80076

== ENCOUNTER 2025-05-11 12:05 | Outpatient (CLI) | payer OTHER, SELFPAY ==
--- NOTE | 2025-05-11 12:10 | MRR_ITS ---
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 The patient reports that he works on various types of metal and has been exposed to manganese. According to the patient's who was present during the patient's initial neurological assessment on 08/14/2023, the patient has been experiencing a 1 to 2-year history of progressive slowed mental processing, intermittent tremors in his hands and at times displaying unintelligible speech during conversations. The patient was diagnosed with a autoimmune type mass involving his pancreas. According to the patient's initially it was thought that the mass was cancerous but after undergoing several pancreatic biopsies the mass was determined to be some type of autoimmune inflammation. The patient was evaluated by oncology and a type caster in [facility]; Additional info: Autoimmune pancreatitis TECHNIQUE: Imaging protocol: Magnetic resonance imaging of the abdomen without contrast. COMPARISON: CT abdomen pelvis w con* [id number] 09/20/2022 8:26 PM FINDINGS: Liver: The liver is normal in size (13 cm in the craniocaudal span) with about 60% drop in signal on out of phase images compatible with severe fatty liver with no focal mass. Gallbladder and biliary ducts: Unremarkable. No stones. No ductal dilation. Pancreas: There is diffusely abnormal low T1 signal within pancreatic parenchyma. There is severe parenchymal atrophy in the body and the tail. There is preserved parenchyma in the head and the uncinate process which appears masslike in comparison with atrophic body and tail. On fat-suppressed T2 weighted images there is about 3 x 2 cm low signal nodular fullness anteriorly in the head demarcated from the intermediate signal parenchyma in the uncinate process as seen on series 501, image 24. This nodule shows mildly decreased contrast enhancement on delayed images as seen on series 1100, image 264. There is no abnormal dilatation of the pancreatic duct. Spleen: Unremarkable. No splenomegaly. Adrenal glands: Unremarkable. No mass. Kidneys: Unremarkable. No solid mass. No hydronephrosis. Stomach and bowel: Visualized stomach and intestines are unremarkable. Intraperitoneal space: No free intraperitoneal fluid. Vasculature: No abdominal aortic aneurysm. Lymph nodes: No enlarged nodes. Bones/joints: No suspicious lesions. Degenerative changes in the endplates around L4-L5 disc Soft tissues: Unremarkable. MR/MR MRCP [id number] IMPRESSION: 1. 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 Severe parenchymal atrophy in the body and in the tail of the pancreas with no abnormal dilatation of the duct. 2. Severe fatty liver with no hepatomegaly.
[2025-05-11] MEDS: gadobenate dimeglumine 20 mL vial IV (13:00)
== END 2025-05-11 12:06 | disposition home or self-care (01) ==
LOC: RAD 12:06
PROVIDERS: PCP Family Medicine; Visit Provider Internal Medicine Gastroenterology
DX: K86.1 Other chronic pancreatitis (principal); K86.89 Other specified diseases of pancreas; K76.0 Fatty (change of) liver, not elsewhere classified; M51.369 Other intervertebral disc degeneration, lumbar region without mention of lumbar back pain or lower extremity pain
CPT/HCPCS: 74181

== ENCOUNTER 2025-06-25 16:07 | Outpatient (CLI) | payer OTHER, SELFPAY | END 2025-06-25 16:08 | disposition home or self-care (01) | PROVIDERS: PCP Family Medicine | DX: K86.89 Other specified diseases of pancreas (principal); K86.1 Other chronic pancreatitis | CPT/HCPCS: 36415 ==

== ENCOUNTER 2025-08-11 11:10 | Outpatient (CLI) | payer OTHER, SELFPAY ==
--- NOTE | 2025-08-11 11:20 | MRR_ITS ---
PROCEDURE INFORMATION: Exam: MR Abdomen Without and With Contrast Exam date and time: 08/11/2025 12:08 PM Age: 60 years old Clinical indication: Condition or disease; Pancreatic condition; 3 x 2 cm masslike hypoenhancing lesion anteriorly in the head of. The pancreas causing no obstruction of the bile duct or pancreatic duct. Likely representing known focal out immune pancreatitis. ; Additional info: Pancreatic mass TECHNIQUE: Imaging protocol: Magnetic resonance imaging of the abdomen without and with contrast. COMPARISON: MR MRCP [id number] 05/11/2025 12:28 PM FINDINGS: Liver: Diffuse fatty infiltration of the liver. No visible nodule. Gallbladder and biliary ducts: Sludge in the gallbladder. No visible stones or wall thickening. The bile ducts are normal. Pancreas: The masslike hypoenhancing lesion in the anterior pancreatic head measures slightly smaller at 2.4 x 1.8 cm. Stable severe atrophy of the pancreatic body and tail. No peripancreatic fat stranding or edema. Spleen: Unremarkable. No splenomegaly. Adrenal glands: Unremarkable. No mass. Kidneys: Unremarkable. No solid mass. No hydronephrosis. Stomach and bowel: Visualized stomach and intestines are unremarkable. Intraperitoneal space: No free fluid. Vasculature: No abdominal aortic aneurysm. Lymph nodes: No enlarged nodes. Bones/joints: Unremarkable. No suspicious lesions. Soft tissues: Unremarkable. MR/MR abdomen wo/w con* [id number] IMPRESSION: 1. Slightly smaller 2.4 x 1.8 cm masslike hypoenhancing lesion in the pancreatic head. This is consistent with improvement of the patient's known autoimmune pancreatitis. 2. Stable severe atrophy of the pancreatic body and tail.
== END 2025-08-11 11:11 | disposition home or self-care (01) ==
PROVIDERS: PCP Family Medicine; Visit Provider Student in an Organized Health Care Education/Training Program
DX: K86.89 Other specified diseases of pancreas (principal)
CPT/HCPCS: 74183

== ENCOUNTER → 2025-08-27 15:07 | Outpatient (BNVA) | payer OTHER, SELFPAY | PROVIDERS: PCP Family Medicine; Visit Provider Family Medicine | DX: R74.8 Abnormal levels of other serum enzymes (principal); K86.1 Other chronic pancreatitis; K76.0 Fatty (change of) liver, not elsewhere classified; G20.A1 Parkinson's disease without dyskinesia, without mention of fluctuations | CPT/HCPCS: 80053; 80061; 85610 ==

== ENCOUNTER 2025-10-27 07:11 | Outpatient (CLI) | payer OTHER, SELFPAY ==
[2025-10-27 08:04] LABS: Alanine Aminotransferase < 5 U/L (0-41); Albumin Level 4.5 g/dL (3.5-5.2); Alkaline Phosphatase 68 U/L (40-130); Anion Gap 14.2 (5-19); Aspartate Amino Transferase 22 U/L (0-40); Blood Urea Nitrogen 19 mg/dL (6-20); Calcium 9.0 mg/dL (8.5-10.5); Carbon Dioxide 27 mmol/L (22-29); Chloride 101 mmol/L (98-107); Globulin 1.9 g/dL (1.3-4.6); Glucose 124 mg/dL (65-115); Osmolality Calculated 290 mOsm/kg (285-295); Potassium 4.2 mmol/L (3.5-5.1); Sodium 138 mmol/L (136-145); Total Protein 6.4 g/dL (6.6-8.7)
== END 2025-10-27 07:12 | disposition home or self-care (01) ==
PROVIDERS: PCP Family Medicine; Visit Provider Student in an Organized Health Care Education/Training Program
DX: K86.1 Other chronic pancreatitis (principal)
CPT/HCPCS: 36415; 80053